=== PATIENT | female | born 1950 | race Two or more races ===

== ENCOUNTER 2023-01-15 12:37 | Outpatient (REF) | payer OTHER, SELFPAY ==
--- NOTE | ~2023-01-15 | MM_ITS ---
EXAMINATION: MM SCREENING DIGITAL BREAST TOMOSYNTHESIS, BILATERAL CLINICAL INFORMATION: Screening. Asymptomatic. Prior outside mammography over 15 years ago from [place], no longer available. Age 72. No known family history breast cancer. The lifetime risk of breast cancer based on the Tyrer-Cuzick Model is 3%. COMPARISON: None (current study represents new baseline exam). TECHNIQUE: Digital breast tomosynthesis is performed in both the craniocaudal and mediolateral oblique views along with computer-aided detection (CAD). Synthesized 2D images are generated from the tomosynthesis. FINDINGS: There are scattered areas of fibroglandular density (ACR BI-RADS breast composition Category b). There are tightly grouped calcifications posterior 3:00 left breast. Patient will be recalled for additional imaging with magnification views. No abnormal calcifications on right. There is no significant mass or architectural abnormality. There are scattered bilateral benign round rim calcifications and some vascular calcifications. The axilla and skin contours are unremarkable. MM/MM tomosynthesis screening BI IMPRESSION: Left: -Grouped calcifications posterior 3:00. Right: -No mammographic evidence of malignancy. ASSESSMENT: BI-RADS 0: Incomplete - Need Additional Imaging Evaluation RECOMMENDATION: 1. Additional views left breast (magnification CC, magnification ML) 2. Radiology department staff will contact the patient for additional imaging. This patient's information was entered into a reminder system with a target due date for their next mammogram.
== END 2023-01-15 12:38 | disposition home or self-care (01) ==
LOC: HO.MAMMO 12:37
PROVIDERS: PCP Family Medicine; Visit Provider Family Medicine
DX: Z12.31 Encounter for screening mammogram for malignant neoplasm of breast (principal)
CPT/HCPCS: 77063; 77067

== ENCOUNTER 2023-04-22 13:20 | Outpatient (REF) | payer OTHER, SELFPAY ==
--- NOTE | ~2023-04-22 | MM_ITS ---
EXAMINATION: MM DIAGNOSTIC DIGITAL MAMMOGRAPHY, LEFT CLINICAL INFORMATION: Follow-up calcifications upper outer quadrant left breast mid to posterior one third depth. COMPARISON: Mammography: Baseline screening exam 01/15/2023. TECHNIQUE: Digital mammography is performed in the following views: 2-D spot compression CC and ML views of the left breast. FINDINGS: There are scattered areas of fibroglandular density (ACR BI-RADS breast composition Category b). In the upper outer left breast, mid to posterior one third, there is a group of calcifications which appears somewhat amorphous on the CC projection, however appear linear with at least 2 calcifications showing layering in microcysts, highly suggesting milk of calcium. These calcifications are probably benign. Results were provided to the patient at time of visit by the technologist. MM/MM added views LT IMPRESSION: Probably benign calcifications related to milk of calcium left breast upper outer quadrant. Six-month interval follow-up mammography recommended to include standard magnification views in the CC and ML projections. ASSESSMENT: BI-RADS BI-RADS 3 - Probably benign finding(s) - 6 month follow-up suggested RECOMMENDATION: 6 Month F/U This patient's information was entered into a reminder system with a target due date for their next mammogram.
== END 2023-04-22 13:21 | disposition home or self-care (01) ==
LOC: HO.MAMMO 13:20
PROVIDERS: PCP Family Medicine; Visit Provider Family Medicine
DX: R92.1 Mammographic calcification found on diagnostic imaging of breast (principal)
CPT/HCPCS: 77065

== ENCOUNTER → 2023-04-22 13:30 | Outpatient (BNV) | payer OTHER, SELFPAY | PROVIDERS: PCP Family Medicine; Visit Provider Radiology Diagnostic Radiology | DX: R92.1 Mammographic calcification found on diagnostic imaging of breast (principal) | CPT/HCPCS: 77061; 77065 ==

== ENCOUNTER 2023-05-27 10:54 | Outpatient (REF) | payer OTHER, SELFPAY ==
[2023-05-27 14:50] LABS: Anion Gap 16 (12-20); Blood Urea Nitrogen 24 mg/dL (9-16); Calcium 10.1 mg/dL (8.4-10.2); Carbon Dioxide 22 mmol/L (22-29); Chloride 107 mmol/L (96-108); Estimated Glomerular Filt Rate 48; Glucose Random 73 mg/dL (60-115); Potassium 3.8 mmol/L (3.3-5.1); Sodium 141 mmol/L (135-145); Uric Acid 6.9 mg/dL (2.4-5.7)
== END 2023-05-27 10:55 | disposition home or self-care (01) ==
LOC: HO.CHCLDS 10:54
PROVIDERS: Visit Provider Family Medicine
DX: I10 Essential (primary) hypertension (principal); M25.562 Pain in left knee; G89.29 Other chronic pain
CPT/HCPCS: 36415; 80048; 84550

== ENCOUNTER 2023-10-29 08:52 | Outpatient (REF) | payer OTHER, SELFPAY ==
[2023-10-29 14:06] LABS: MANUAL DIFF FLAG NO
[2023-10-29 14:09] LABS: Basophils Percent Auto 0.5 % (0-2); Eosinophils Absolute Auto 0.3 X10*3/uL (0.0-0.4); Hematocrit 41.2 % (37.0-47.0); Hemoglobin 13.2 g/dl (12.0-16.0); Imm Gran Abs Auto 0.02 X10*3/uL (0.00-0.03); Imm Gran Pct Auto 0.3 % (0.0-0.4); Lymphocytes Absolute Auto 1.6 X10*3/uL (1.2-4.9); Lymphocytes Percent Auto 24.3 % (20-40); Mean Corpuscular Hemoglobin 27.3 pg (27.0-33.0); Mean Corpuscular Volume 85.1 fL (80.0-98.0); Mean Platelet Volume 11.4 fL (9.4-12.3); Monocytes Absolute Auto 0.7 X10*3/uL (0.1-1.2); Monocytes Percent Auto 10.5 % (2-11); Neutrophils Absolute Auto 3.9 x10*3/uL (2.0-8.3); Neutrophils Percent Auto 60.4 % (45-73); Platelet Count 286 X10*3/uL (160-400); Red Blood Count 4.84 X10*6/uL (4.20-5.50); Red Cell Distribution Width 16.7 % (11.0-16.0); White Blood Count 6.5 X10*3/uL (4.8-10.8)
[2023-10-29 14:19] LABS: Estimated Average Glucose 103 mg/dL; Hemoglobin A1c % 5.2 % (<6.0)
[2023-10-29 15:13] LABS: TSH reflex Free T4 0.95 uIU/mL (0.32-4.0)
[2023-10-29 15:16] LABS: Alanine Aminotransferase 19 U/L (0-31); Albumin Level 4.3 g/dL (3.5-5.0); Alkaline Phosphatase 97 U/L (39-117); Anion Gap 16 (12-20); Aspartate Amino Transferase 19 U/L (5-31); Bilirubin Total 0.6 mg/dL (0.0-1.0); Blood Urea Nitrogen 31 mg/dL (9-16); Calcium 9.5 mg/dL (8.4-10.2); Carbon Dioxide 25 mmol/L (22-29); Chloride 106 mmol/L (96-108); Cholesterol 136 mg/dL (<200); Estimated Glomerular Filt Rate 42; Glucose Random 59 mg/dL (60-115); HDL Cholesterol 38 mg/dL (>40); LDL Cholesterol Calculated 73 mg/dL (<100); Potassium 4.2 mmol/L (3.3-5.1); Sodium 143 mmol/L (135-145); Total Protein 7.2 g/dL (6.5-8.0); Triglycerides 125 mg/dL (<150)
== END 2023-10-29 08:53 | disposition home or self-care (01) ==
LOC: HO.CHCLDS 08:52
PROVIDERS: Visit Provider Family Medicine
DX: E66.01 Morbid (severe) obesity due to excess calories (principal)
CPT/HCPCS: 36415; 80053; 80061; 83036; 84443; 85025

== ENCOUNTER 2024-01-21 14:09 | Outpatient (REF) | payer OTHER, SELFPAY ==
--- NOTE | ~2024-01-21 | MM_ITS ---
EXAMINATION: MM DIAGNOSTIC DIGITAL BREAST TOMOSYNTHESIS, BILATERAL CLINICAL INFORMATION: Follow-up for calcifications left breast upper outer quadrant, mid to posterior one third, which was recommended 04/22/2023. Patient did not return until today. Patient also for bilateral screening. COMPARISON: Mammography: Left 04/22/2023, bilateral 01/15/2023. More remote priors were unobtainable from [place]. TECHNIQUE: Digital breast tomosynthesis is performed in both the craniocaudal and mediolateral oblique views along with computer-aided detection (CAD). Synthesized 2D images are generated from the tomosynthesis. In addition, 2-D spot magnification left CC and ML views were obtained, as well as 3-D spot compression right CC and MLO views. FINDINGS: There are scattered areas of fibroglandular density (ACR BI-RADS breast composition Category b). Calcifications in the upper outer left breast, mid to posterior one third, are entirely stable without aggressive changes compared with 04/22/2023, and 01/15/2023. These remain probably benign. Scattered bilateral benign type calcifications are present, as well as several nodular asymmetries in both breasts which are also unchanged. No new masses, developing regions of architectural distortion, or additional suspicious calcifications identified in either breast. The skin and axillary regions demonstrate no suspicious finding. MM/MM tomosynthesis diagnostic BI IMPRESSION: -There are no findings suspicious for malignancy in either breast. -Calcifications in the upper outer left breast are entirely stable without aggressive changes. These remain probably benign, and 1 year follow-up diagnostic mammogram to include standard magnification views recommended to ensure stability. -Stable benign findings. ASSESSMENT: BI-RADS BI-RADS 3 - Probably benign finding(s) - 12 month follow-up suggested RECOMMENDATION: 12 month diagnostic follow up Results were provided to the patient at time of visit by the technologist. This patient's information was entered into a reminder system with a target due date for their next mammogram.
== END 2024-01-21 14:10 | disposition home or self-care (01) ==
LOC: HO.MAMMO 14:09
PROVIDERS: PCP Family Medicine; Visit Provider Family Medicine
DX: R92.1 Mammographic calcification found on diagnostic imaging of breast (principal)
CPT/HCPCS: 77062; 77066

== ENCOUNTER → 2024-01-21 15:00 | Outpatient (BNV) | payer OTHER, SELFPAY | PROVIDERS: PCP Family Medicine; Visit Provider Radiology Diagnostic Radiology | DX: R92.1 Mammographic calcification found on diagnostic imaging of breast (principal) | CPT/HCPCS: 77066; G0279 ==

== ENCOUNTER 2024-06-03 08:13 | Outpatient (REF) | payer OTHER, SELFPAY ==
[2024-06-03 14:30] LABS: MANUAL DIFF FLAG NO
[2024-06-03 14:33] LABS: Basophils Absolute Auto 0.1 X10*3/uL (0.0-0.2); Eosinophils Absolute Auto 0.3 X10*3/uL (0.0-0.4); Eosinophils Percent Auto 4.6 % (0-4); Hematocrit 40.4 % (37.0-47.0); Hemoglobin 12.8 g/dl (12.0-16.0); Imm Gran Abs Auto 0.03 X10*3/uL (0.00-0.03); Imm Gran Pct Auto 0.4 % (0.0-0.4); Lymphocytes Absolute Auto 1.9 X10*3/uL (1.2-4.9); Lymphocytes Percent Auto 27.7 % (20-40); Mean Corpuscular HGB Conc 31.7 g/dl (31.0-35.0); Mean Corpuscular Hemoglobin 27.5 pg (27.0-33.0); Mean Corpuscular Volume 86.7 fL (80.0-98.0); Monocytes Absolute Auto 0.7 X10*3/uL (0.1-1.2); Monocytes Percent Auto 10.1 % (2-11); Neutrophils Absolute Auto 3.8 x10*3/uL (2.0-8.3); Neutrophils Percent Auto 56.2 % (45-73); Platelet Count 280 X10*3/uL (160-400); Red Blood Count 4.66 X10*6/uL (4.20-5.50); Red Cell Distribution Width 17.1 % (11.0-16.0); White Blood Count 6.8 X10*3/uL (4.8-10.8)
[2024-06-03 14:46] LABS: Alanine Aminotransferase 22 U/L (0-31); Albumin Level 4.1 g/dL (3.5-5.0); Alkaline Phosphatase 90 U/L (39-117); Anion Gap 12 (12-20); Aspartate Amino Transferase 26 U/L (5-31); Bilirubin Total 0.4 mg/dL (0.0-1.0); Blood Urea Nitrogen 32 mg/dL (9-16); Calcium 9.7 mg/dL (8.4-10.2); Carbon Dioxide 25 mmol/L (22-29); Chloride 111 mmol/L (96-108); Cholesterol 140 mg/dL (<200); Estimated Glomerular Filt Rate 42; Glucose Random 82 mg/dL (60-115); HDL Cholesterol 37 mg/dL (>40); LDL Cholesterol Calculated 78 mg/dL (<100); Potassium 4.3 mmol/L (3.3-5.1); Sodium 144 mmol/L (135-145); Total Protein 6.9 g/dL (6.5-8.0); Triglycerides 125 mg/dL (<150); Uric Acid 7.3 mg/dL (2.4-5.7)
== END 2024-06-03 08:14 | disposition home or self-care (01) ==
LOC: HO.CHCLDS 08:13
PROVIDERS: Visit Provider Family Medicine
DX: I10 Essential (primary) hypertension (principal)
CPT/HCPCS: 36415; 80053; 80061; 84550; 85025

== ENCOUNTER 2024-06-11 14:28 | Outpatient (REF) | payer OTHER, SELFPAY ==
[2024-06-11 18:13] LABS: Appearance Urine Clear; Color Urine Yellow; Glucose Urine UA Negative (Negative); Leukocyte Esterase Urine Negative (Negative); Nitrite Urine Negative (Negative); PH 5.5 (5.0-9.0); Urine Blood Negative (Negative); Urine Ketones Negative (Negative); Urine Protein Negative (Neg-Trace)
[2024-06-11 18:20] LABS: Bacteria Urine 1+ (None Seen); Hyaline Casts Urine 0-2 /LPF (0-2); RBC Urine 0-2 /HPF (0-2); UACC Culture Trigger YES
== END 2024-06-11 14:29 | disposition home or self-care (01) ==
LOC: CF 14:28
PROVIDERS: Visit Provider Family Medicine
DX: N81.4 Uterovaginal prolapse, unspecified (principal); R82.90 Unspecified abnormal findings in urine
CPT/HCPCS: 81001; 87086

== ENCOUNTER 2024-07-22 12:52 | Outpatient (REF) | payer OTHER, SELFPAY ==
[2024-07-22 14:11] LABS: MANUAL DIFF FLAG NO
[2024-07-22 14:15] LABS: Basophils Absolute Auto 0.1 X10*3/uL (0.0-0.2); Eosinophils Absolute Auto 0.2 X10*3/uL (0.0-0.4); Eosinophils Percent Auto 2.4 % (0-4); Hematocrit 38.9 % (37.0-47.0); Hemoglobin 12.6 g/dl (12.0-16.0); Imm Gran Abs Auto 0.04 X10*3/uL (0.00-0.03); Imm Gran Pct Auto 0.6 % (0.0-0.4); Lymphocytes Percent Auto 29.2 % (20-40); Mean Corpuscular HGB Conc 32.4 g/dl (31.0-35.0); Mean Corpuscular Hemoglobin 27.5 pg (27.0-33.0); Mean Corpuscular Volume 84.7 fL (80.0-98.0); Mean Platelet Volume 10.7 fL (9.4-12.3); Monocytes Absolute Auto 0.5 X10*3/uL (0.1-1.2); Monocytes Percent Auto 7.6 % (2-11); Neutrophils Absolute Auto 4.1 x10*3/uL (2.0-8.3); Neutrophils Percent Auto 59.2 % (45-73); Platelet Count 295 X10*3/uL (160-400); Red Blood Count 4.59 X10*6/uL (4.20-5.50); Red Cell Distribution Width 17.5 % (11.0-16.0)
[2024-07-22 14:54] LABS: Alanine Aminotransferase 19 U/L (0-31); Alkaline Phosphatase 93 U/L (39-117); Anion Gap 12 (12-20); Aspartate Amino Transferase 33 U/L (5-31); Bilirubin Total 0.4 mg/dL (0.0-1.0); Blood Urea Nitrogen 26 mg/dL (9-16); Calcium 9.8 mg/dL (8.4-10.2); Carbon Dioxide 26 mmol/L (22-29); Chloride 108 mmol/L (96-108); Estimated Glomerular Filt Rate 41; Glucose Random 111 mg/dL (60-115); Potassium 4.3 mmol/L (3.3-5.1); Sodium 142 mmol/L (135-145); Total Protein 7.2 g/dL (6.5-8.0)
[2024-07-22 15:09] LABS: TSH reflex Free T4 1.79 uIU/mL (0.32-4.0)
[2024-07-22 15:21] LABS: Folate 10.8 ng/mL (> or = 4.0); Vitamin B12 449 pg/mL (200-900)
[2024-07-23 07:58] LABS: Syphilis Screen Nonreactive (Nonreactive)
[2024-07-23 07:59] LABS: HIV AB/AG Nonreactive (Nonreactive); HIV Num 1 0.04 S/CO (0.00-0.99)
[2024-07-23 09:53] LABS: Lyme Abs Screen <0.90 index
== END 2024-07-22 12:53 | disposition home or self-care (01) ==
LOC: HO.CHCLDS 12:52
PROVIDERS: Visit Provider Family Medicine
DX: R41.3 Other amnesia (principal)
CPT/HCPCS: 36415; 80053; 82607; 82746; 84443; 85025; 86617; 86618; 86780; 87389